=== PATIENT | male | born 1930 | race Caucasian/White ===

== ENCOUNTER 2017-04-28 16:19 | Emergency (ER) | payer OTHER ==
[2017-04-28 17:17] VITALS: BP 155/65; PULSE 72; TEMP 98.5; BMI 25.6
--- NOTE | 2017-04-28 17:52 | PDOC ---
History of Present Illness <Cameron Dias - Last Filed: 04/28/17 17:50> - General History Source: Patient, Family Exam Limitations: Other - History of Present Illness Initial Comments: 04/28/17 20:19 The patient is a 86 year old male, with a significant past medical history chronic constipation, hypertension, anxiety, who presents to the emergency department s/p mechanical fall yesterday. Patient reports he was putting in an enema for constipation, when he suddenly he lost his balance and hit his head on a knob. Patient denies any loss of consciousness, changes in vision, headache , lightheadedness, dizziness, numbness or tingling, neck or back pain. He denies any chest pain, shortness of breath, diaphoresis, palpitations, or lower extremity edema prior to falling. He denies any focal weakness, fever, chills, cough, headache, or dizziness. He denies any abdominal pain, nausea, vomiting, diarrhea. He denies any recent travel or sick contacts. He denies any other falls. Patient takes an Aspirin daily. Patient endorses increasing insomnia and decrease in cognition and difficulty finding words over the past 2 months, s/p addition of new psychiatric and hypertension medications. Patient also endorses orthopnea and dyspnea on exertion. Allergies: NKDA Past Surgical History: Hip replacement Social History: Non smoker. No ETOH or recreational drug use. PCP: Dr. Quach <Dipak Fowler - Last Filed: 04/28/17 20:19> <Hodan Marino - Last Filed: 04/29/17 02:29> - General Chief Complaint: Injury Stated Complaint: FALL MORNING Time Seen by Provider: 04/28/17 16:22 Past History - Past Medical History COPD: No - Suicide/Smoking/Psychosocial Hx Smoking History: Never smoked Have you smoked in the past 12 months: No Information on smoking cessation initiated: No Hx Alcohol Use: No Drug/Substance Use Hx: No Substance Use Type: None <Cameron Dias - Last Filed: 04/28/17 17:50> <Dipak Fowler - Last Filed: 04/28/17 20:19> <Hodan Marino - Last Filed: 04/29/17 02:29> - Past Medical History Allergies/Adverse Reactions: Allergies Allergy/AdvReac Type Severity Reaction Status Date / Time No Known Allergies Allergy Verified 04/28/17 17:07 Home Medications: Ambulatory Orders Amlodipine Besylate 5 mg PO DAILY 04/28/17 Aspirin [ASA -] 81 mg PO DAILY 04/28/17 Doxazosin Mesylate [Cardura -] 4 mg PO DAILY 04/28/17 Finasteride [Proscar] 5 mg PO DAILY 04/28/17 Mirtazapine 7.5 mg PO HS 04/28/17 Sertraline HCl [Zoloft] 100 mg PO DAILY 04/28/17 Trazodone HCl 50 mg PO HS 04/28/17 Valsartan 160 mg PO DAILY 04/28/17 Review of Systems - Review of Systems Able to Perform ROS?: Yes Comments:: 04/28/17 20:20 CONSTITUTIONAL: Absent: fever, no chills, no fatigue EYES: Absent: visual changes ENT: Absent: ear pain, no sore throat CARDIOVASCULAR: Absent: chest pain, no palpitations RESPIRATORY: Present: Orthopnea Absent: cough GI: Present: constipation Absent: abdominal pain, no nausea, no vomiting, no diarrhea GENITOURINARY: Absent: dysuria, no frequency, no hematuria MUSKULOSKELETAL: Absent: back pain, no arthralgia, no myalgia SKIN: Absent: rash NEURO: Present: Increasing insomnia, decrease in cognition, difficulty word finding Absent: headache <Fowler,Giomilsy - Last Filed: 04/28/17 20:19> *Physical Exam - Vital Signs Last Vital Signs Temp Pulse Resp BP Pulse Ox 98.5 F 72 20 155/65 98 04/28/17 16:20 04/28/17 16:20 04/28/17 16:20 04/28/17 16:20 04/28/17 16:20 <ArunCameron - Last Filed: 04/28/17 17:50> - Vital Signs Last Vital Signs Temp Pulse Resp BP Pulse Ox 98.5 F 72 20 155/65 98 04/28/17 16:20 04/28/17 16:20 04/28/17 16:20 04/28/17 16:20 04/28/17 16:20 - Physical Exam Comments: 04/28/17 20:20 GENERAL: The patient is awake, alert, and fully oriented, in no acute distress. HEAD: 1x1 cm nonbleeding shallow abrasion at the vertex. No other lesions noted. No other signs of trauma. EYES: Pupils 2 mm, equal, round and reactive to light, extraocular movements intact, sclera anicteric, conjunctiva clear with no pallor. ENT: Ears normal, nares patent, oropharynx clear without exudates. Moist mucous membranes. NECK: Normal range of motion, supple without lymphadenopathy, JVD, or masses. Non tender. LUNGS: Breath sounds equal, clear to auscultation bilaterally. No wheeze/ crackles. HEART: 2/6 systolic ejection murmur. Regular rate. ABDOMEN: Soft/nontender/nondistended. BS wnl. No guarding or rebound. No palpable masses. No hepatosplenomegaly. EXTREMITIES: Normal range of motion, no edema. No clubbing or cyanosis. No cords, erythema, or tenderness. NEUROLOGICAL: Difficulty with word recall. No other focal neurological deficits. Cranial nerves II through XII grossly intact. Normal gait. PSYCH: Normal mood, normal affect. SKIN: Warm, Dry, normal turgor, no rashes or lesions noted. <Dipak Fowler - Last Filed: 04/28/17 20:19> - Vital Signs Last Vital Signs Temp Pulse Resp BP Pulse Ox 98.5 F 72 20 155/65 98 04/28/17 16:20 04/28/17 16:20 04/28/17 16:20 04/28/17 16:20 04/28/17 16:20 <Hodan Marino - Last Filed: 04/29/17 02:29> ED Treatment Course - RADIOLOGY Radiograph Interpretation: 04/28/17 20:19 EXAM: Head CT INTERPRETED BY: Dr. Shelton REVIEWED BY: Dr. Marino IMPRESSION: 1. No evidence of acute intracranial hemorrhage or acute calvarial fracture. No mass effect, midline shift or hydrocephalus. 2. 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 I attest that this documented accurately reflects all work, treatment, procedures and medical decision making performed by me. <Hodan Marino - Last Filed: 04/29/17 02:29> Medical Decision Making - Medical Decision Making 04/28/17 17:50 86y M hx of presents s/p fall. pt was giving himself a enema when he fell over and struck his head on a door knob without any syncope, headache, n/v, <Cameron Dias - Last Filed: 04/28/17 17:50> - Medical Decision Making As noted above, this 86-year-old man presents with history of losing his balance at home yesterday and falling, striking top of his head against a door in his home where he lives alone. He presents to the ER with his family with no new complaints (specifically, denies headache, nausea/vomiting, lightheadedness or new neurologic symptoms). He has been having word recall and cognition problems for several weeks but these are not worse in the last 24 hours. He also has issues with chronic constipation but this is not worsened acutely either. Both chronic problems are complicated by the patient being on multiple medications. Exam as noted above. Because of his advanced age and being on aspirin, noncontrast head CT was performed to evaluate for acute intracranial pathology. Noncontrast head CT negative for fracture/bleed/masses or other acute abnormalities. Small nonbleeding abrasion at the vertex was cleansed using sterile saline and bacitracin/Band-Aid applied. Further follow-up was discussed with the patient and his family. Patient already has appointment scheduled with ink maker and psychiatrists in the coming week. He has not been evaluated by neurologist since the onset of his word recall/cognition problems. He was given referral information for Dr. Neely with whom he should follow-up within the next week. Also, patient had questions regarding his chronic constipation. Although he has been prescribed MiraLAX, it is unclear if he takes it daily. The patient has been advised to take it on a daily basis and to drink plenty of water. <Hodan Marino - Last Filed: 04/29/17 02:29> *DC/Admit/Observation/Transfer <Cameron Dias - Last Filed: 04/28/17 17:50> - Attestations Scribe Attestion: 04/28/17 20:19 Documentation prepared by Dipak Fowler, acting as medical office scheduler for Hodan Marino MD. <Dipak Fowler - Last Filed: 04/28/17 20:19> <Hodan Marino - Last Filed: 04/29/17 02:29> Diagnosis at time of Disposition: Scalp abrasion Qualifiers: Encounter type: initial encounter Qualified Code(s): S00.01XA - Abrasion of scalp, initial encounter Constipation Qualifiers: Constipation type: unspecified constipation type Qualified Code(s): K59.00 - Constipation, unspecified - Discharge Dispostion Disposition: HOME Condition at time of disposition: Stable - Referrals Referrals: Roddy Neely MD [Staff Physician] - Call tomorrow - Patient Instructions Printed Discharge Instructions: Constipation Additional Instructions: tylenol as needed for pain continue drinking plenty of fluids continue Miralax daily consider citrate of magnesia for persistent constipation followup with neurologist(Dr Neely) within one week followup with student union consultant/cardilogist/psychiatrist as scheduled return to ER if you have headache/vomiting/severe abdominal pain
--- NOTE | 2017-04-30 20:47 | EKG ---
Test Reason : Blood Pressure : / mmHG Vent. Rate : 088 BPM Atrial Rate : 088 BPM P-R Int : 130 ms QRS Dur : 084 ms QT Int : 344 ms P-R-T Axes : 074 044 033 degrees QTc Int : 416 ms NORMAL SINUS RHYTHM POSSIBLE LEFT ATRIAL ENLARGEMENT BORDERLINE ECG NO PREVIOUS ECGS AVAILABLE Confirmed by DANIELLE DICKERSON, ELIANA ([id number]) on 04/30/2017 8:46:56 PM Referred By: MD TAYLOR Confirmed By:ELIANA SANTOS MD
== END 2017-04-28 20:20 | disposition home or self-care (01) ==
LOC: FER 16:19 → EDBD 16:19 → FER 20:20
DX: S00.01XA Abrasion of scalp, initial encounter (principal); K59.00 Constipation, unspecified; W22.01XA Walked into wall, initial encounter; Y93.89 Activity, other specified; Y92.009 Unspecified place in unspecified non-institutional (private) residence as the place of occurrence of the external cause
CPT/HCPCS: 70450-TC; 93005; 99282-25

== ENCOUNTER 2019-04-29 17:06 | Inpatient (IN) | payer OTHER ==
--- NOTE | 2019-04-29 17:26 | PDOC ---
History of Present Illness - General Chief Complaint: Pain, Acute Stated Complaint: FALL Time Seen by Provider: 04/29/19 17:25 - History of Present Illness Initial Comments: Alphonse Mackey is a 86 year old male, with a significant past medical history hypertension, anxiety, who presents to the emergency department s/p fall on Monday afternoon. Reports that he was walking around a track when he fell. States that he feel due to feeling unsteady from lack of sleep over the past week. Reports bruising and pain in the right periorbital region. No headache. Fall was unwitnessed and EMS was called. Denies dizziness/heart palpitations. Also reports right hand swelling and bruising. Denies recent illness. Denies chest pain/shortness of breath. Denies abdominal pain. Denies diarrhea/dysuria. Allergies: NKDA Past Surgical History: Hip replacement Social History: Non smoker. No ETOH or recreational drug use. PCP: Dr. Quach Past History - Past Medical History Allergies/Adverse Reactions: Allergies Allergy/AdvReac Type Severity Reaction Status Date / Time No Known Allergies Allergy Verified 04/28/17 17:07 Home Medications: Ambulatory Orders Amlodipine Besylate 5 mg PO DAILY 04/28/17 Doxazosin Mesylate [Cardura -] 4 mg PO DAILY 04/28/17 Finasteride [Proscar] 5 mg PO DAILY 04/28/17 Aspirin Coated [Ecotrin -] 81 mg PO DAILY 04/29/19 Losartan Potassium [Cozaar] 100 mg PO DAILY 04/29/19 Quetiapine Fumarate [Seroquel -] 50 mg PO HS 04/29/19 COPD: No HTN: Yes - Psycho Social/Smoking Cessation Hx Smoking History: Never smoked Have you smoked in the past 12 months: No Hx Alcohol Use: No Drug/Substance Use Hx: No Substance Use Type: None Review of Systems - Review of Systems Comments:: GENERAL/CONSTITUTIONAL: No fever or chills. No weakness._ HEAD, EYES, EARS, NOSE AND THROAT: No change in vision. No change in hearing. No sore throat. Reports right periorbital pain. CARDIOVASCULAR: No chest pain or shortness of breath_ RESPIRATORY: Denies cough, hemoptysis_ GASTROINTESTINAL: No nausea, vomiting, diarrhea or constipation._ GENITOURINARY: No dysuria, frequency, or change in urination._ MUSCULOSKELETAL: Reports right hand pain and swelling. No neck or back pain._ SKIN: No rash_ NEUROLOGIC: Reports headache. No vertigo, loss of consciousness, or change in strength/sensation._ ENDOCRINE: No increased thirst. No abnormal weight change_ HEMATOLOGIC/LYMPHATIC: No anemia, easy bleeding, or history of blood clots._ ALLERGIC/IMMUNOLOGIC: No hives or skin allergy._ *Physical Exam - Vital Signs Last Vital Signs Temp Pulse Resp BP Pulse Ox 97.9 F 70 18 131/62 99 04/29/19 17:06 04/29/19 17:06 04/29/19 17:06 04/29/19 17:06 04/29/19 17:06 - Physical Exam GENERAL: Awake, alert, and oriented to person/place/time, in no acute distress_ HEAD: Right periorbital bruising. EYES: PERRLA, EOMI, sclera anicteric, conjunctiva clear. ENT: Hearing grossly normal, nares patent, oropharynx clear without exudates. No uvular deviation. Moist mucosa_ NECK: Normal ROM, supple, no lymphadenopathy, JVD, or masses. no c-spine ttp. LUNGS: No distress, speaks in full sentences, clear to auscultation bilaterally _ HEART: Regular rate and rhythm, normal S1 and S2, no murmurs appreciated, peripheral pulses normal and equal bilaterally._ ABDOMEN: Soft, nontender, normoactive bowel sounds. No guarding, no rebound. No masses_ EXTREMITIES: Right hand swelling and mild TTP, with full ROM. No BLE edema. No clubbing or cyanosis_ NEUROLOGICAL: CN II-XII tested and intact. Sensation intact to sharp/dull differentiation in all extremities. Motor: Normal tone and bulk. No abnormal movements appreciated. No pronator drift. Strength tested and 5/5 in bilateral wrist flexion/extension, elbow flexion/extension, shoulder abduction, straight leg raise, knee flexion/extension, ankle dorsiflexion/plantarflexion. Patient ambulates with a steady gait. Coordination: Finger to nose and heel to [place]wood testing intact bilaterally. SKIN: Warm, Dry, normal turgor, no rashes or lesions noted_ Procedures - Splinting Splint Location: Right: Wrist (right 4th/5th metatarsal non displaced fx) Pre-Proc Neuro Vasc Exam: normal Hand-Made Type: orthoglass Splint Type: Yes: Ulnar Post-Proc Neuro Vasc Exam: normal Simon Bandage: yes, 2", 4", 6" Sling: No Complications: No Post splint xray: No Good repositioning: Yes ED Treatment Course - LABORATORY CBC & Chemistry Diagram: 04/30/19 06:45 04/30/19 06:45 Medical Decision Making - Medical Decision Making 04/29/19 17:41 88M presenting s/p fall on Monday afternoon. -cbc, cmp -ekg, trop, cxr -ua, ucx -ct head/orbits -XR right hand and wrist 04/29/19 18:18 CT head negative for acute intracranial hemorrhage or pathology. 04/29/19 18:32 Labs reviewed. Laboratory Last Values WBC 9.2 K/mm3 (4.0-10.8) 04/29/19 17:40 RBC 3.21 M/mm3 (4.00-5.60) L 04/29/19 17:40 Hgb 10.7 GM/dl (11.7-16.9) L 04/29/19 17:40 Hct 32.2 % (35.4-49) L 04/29/19 17:40 MCV 100.6 fl (80-96) H 04/29/19 17:40 MCH 33.5 pg (25.7-33.7) 04/29/19 17:40 MCHC 33.3 g/dl (32.0-35.9) 04/29/19 17:40 RDW 12.3 % (11.9-15.9) 04/29/19 17:40 Plt Count 231 K/MM3 (134-434) 04/29/19 17:40 MPV 7.8 fl (7.5-11.1) 04/29/19 17:40 Absolute Neuts (auto) 7.2 K/mm3 04/29/19 17:40 Neutrophils % 78.3 % (42.8-82.8) 04/29/19 17:40 Lymphocytes % 10.8 % (8-40) 04/29/19 17:40 Monocytes % 9.7 % (3.8-10.2) 04/29/19 17:40 Eosinophils % 1.0 % (0-4.5) 04/29/19 17:40 Basophils % 0.2 % (0-2.0) 04/29/19 17:40 Sodium 128 mmol/L (136-145) L 04/29/19 17:40 Potassium 4.5 mmol/L (3.5-5.1) 04/29/19 17:40 Chloride 96 mmol/L (98-107) L 04/29/19 17:40 Carbon Dioxide 23 mmol/L (21-32) 04/29/19 17:40 Anion Gap 9 MMOL/L (8-16) 04/29/19 17:40 BUN 18.0 mg/dl (7-18) 04/29/19 17:40 Creatinine 0.8 mg/dl (0.55-1.3) 04/29/19 17:40 Est GFR (CKD-EPI)AfAm 93.75 04/29/19 17:40 Est GFR (CKD-EPI)NonAf 80.89 04/29/19 17:40 Random Glucose 120 mg/dl (74-106) H 04/29/19 17:40 Calcium 8.9 mg/dl (8.5-10) 04/29/19 17:40 Total Bilirubin 0.9 mg/dl (0.2-1) 04/29/19 17:40 AST 21 U/L (15-37) 04/29/19 17:40 ALT 16 U/L (13-61) 04/29/19 17:40 Alkaline Phosphatase 49 U/L (45-117) 04/29/19 17:40 Creatine Kinase 236 U/L (26-308) 04/29/19 17:40 Troponin I < 0.03 ng/ml (0.00-0.05) 04/29/19 17:40 Total Protein 5.7 g/dl (6.4-8.2) L 04/29/19 17:40 Albumin 3.8 g/dl (3.4-5.0) 04/29/19 17:40 Urine Color Yellow 04/29/19 18:00 Urine Appearance Clear 04/29/19 18:00 Urine pH 7.5 (4.5-8) 04/29/19 18:00 Urine Protein Negative (NEGATIVE) 04/29/19 18:00 Urine Glucose (UA) Negative (NEGATIVE) 04/29/19 18:00 Urine Ketones Negative (NEGATIVE) 04/29/19 18:00 Urine Blood Negative (NEGATIVE) 04/29/19 18:00 Urine Nitrite Negative (NEGATIVE) 04/29/19 18:00 Urine Bilirubin Negative (NEGATIVE) 04/29/19 18:00 Urine Urobilinogen 0.2 (0.2-1.0) 04/29/19 18:00 Ur Leukocyte Esterase Negative (NEGATIVE) 04/29/19 18:00 04/29/19 18:34 Pt hyponatremic. Will start NS fluids and urine Na/Cl/osm. 04/29/19 18:47 EKG shows sinus rhythm with premature supraventricular complexes, 69 bpm, no ST elevation, QTc 407. 04/29/19 18:56 CXR negative. 04/29/19 19:08 CT head negative for acute intracranial pathology or hemorrhage. CT orbit negative for acute fracture. 04/29/19 19:57 D/w Dr. Alberts who accepts the pt for admission. XR right hand shows nondisplaced fx of 5th metatarsal and possible fx of 4th metatarsal. Ulnar gutter splint applied. Discharge - Discharge Information Problems reviewed: Yes Clinical Impression/Diagnosis: Hyponatremia Fracture of metacarpal of right hand, closed Qualifiers: Encounter type: initial encounter Fracture alignment: nondisplaced Condition: Stable - Admission Yes - Follow up/Referral - Patient Discharge Instructions - Post Discharge Activity
--- NOTE | 2019-04-29 17:30 | PDOC ---
Attending Attestation - Resident Resident Name: Juan Luis Rivas - ED Attending Attestation I have performed the following: I have examined & evaluated the patient, The case was reviewed & discussed with the resident, I agree w/resident's findings & plan, Exceptions are as noted - HPI HPI: 04/29/19 17:30 The patient is a 86 year old male, with a significant past medical history chronic constipation, hypertension, anxiety, who presents to the emergency department s/p mechanical fall yesterday.
[2019-04-29 18:04] LABS: BASO % 0.2 % (0-2.0); HEMATOCRIT 32.2 % (35.4-49); HEMOGLOBIN 10.7 GM/dl (11.7-16.9); LYMPH % 10.8 % (8-40); MCH 33.5 pg (25.7-33.7); MCHC 33.3 g/dl (32.0-35.9); MEAN CELL VOLUME 100.6 fl (80-96); MEAN PLT VOLUME 7.8 fl (7.5-11.1); MONO % 9.7 % (3.8-10.2); NEUT % 78.3 % (42.8-82.8); PLATELET COUNT 231 K/MM3 (134-434); RBC 3.21 M/mm3 (4.00-5.60); RDW 12.3 % (11.9-15.9); WHITE BLOOD COUNT 9.2 K/mm3 (4.0-10.8)
[2019-04-29 18:14] LABS: ALBUMIN 3.8 g/dl (3.4-5.0); BILIRUBIN,TOTAL 0.9 mg/dl (0.2-1); CALCIUM 8.9 mg/dl (8.5-10); CREATININE 0.8 mg/dl (0.55-1.3); POTASSIUM 4.5 mmol/L (3.5-5.1); TOT PROT 5.7 g/dl (6.4-8.2)
[2019-04-29] MEDS ORDERED: SODIUM CHLORIDE 1,000 ML IV SCH (18:45)
--- NOTE | 2019-04-29 19:25 | PDOC ---
*Physical Exam - Vital Signs Last Vital Signs Temp Pulse Resp BP Pulse Ox 97.9 F 70 18 131/62 99 04/29/19 17:06 04/29/19 17:06 04/29/19 17:06 04/29/19 17:06 04/29/19 17:06 ED Treatment Course - LABORATORY CBC & Chemistry Diagram: 04/29/19 17:40 04/29/19 17:40 - ADDITIONAL ORDERS Additional order review: Laboratory Results 04/29/19 04/29/19 04/29/19 18:11 18:00 17:40 Sodium Potassium Chloride Carbon Dioxide Anion Gap BUN Creatinine Est GFR (CKD-EPI)AfAm Est GFR (CKD-EPI)NonAf Random Glucose Calcium Total Bilirubin AST ALT Alkaline Phosphatase Creatine Kinase Creatine Kinase Index CK-MB (CK-2) Troponin I < 0.03 Total Protein Albumin Urine Color Yellow Urine Appearance Clear Urine pH 7.5 Urine Protein Negative Urine Glucose (UA) Negative Urine Ketones Negative Urine Blood Negative Urine Nitrite Negative Urine Bilirubin Negative Urine Urobilinogen 0.2 Ur Leukocyte Esterase Negative Ur Random Sodium 14 L Ur Random Chloride 34 L 04/29/19 17:40 Sodium 128 L Potassium 4.5 Chloride 96 L Carbon Dioxide 23 Anion Gap 9 BUN 18.0 Creatinine 0.8 Est GFR (CKD-EPI)AfAm 93.75 Est GFR (CKD-EPI)NonAf 80.89 Random Glucose 120 H Calcium 8.9 Total Bilirubin 0.9 AST 21 ALT 16 Alkaline Phosphatase 49 Creatine Kinase 236 Creatine Kinase Index 3.1 CK-MB (CK-2) 7.5 H Troponin I Total Protein 5.7 L Albumin 3.8 Urine Color Urine Appearance Urine pH Urine Protein Urine Glucose (UA) Urine Ketones Urine Blood Urine Nitrite Urine Bilirubin Urine Urobilinogen Ur Leukocyte Esterase Ur Random Sodium Ur Random Chloride 04/29/19 17:40 RBC 3.21 L MCV 100.6 H MCHC 33.3 RDW 12.3 MPV 7.8 Neutrophils % 78.3 Lymphocytes % 10.8 Monocytes % 9.7 Eosinophils % 1.0 Basophils % 0.2 Medical Decision Making - Medical Decision Making 04/29/19 19:24\ pt signed out from Dr Cardenas at 7pm pending admission in summary: The patient is a 86 year old male, with a 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 Vital Signs Temp Pulse Resp BP Pulse Ox 97.9 F 70 18 131/62 99 04/29/19 17:06 04/29/19 17:06 04/29/19 17:06 04/29/19 17:06 04/29/19 17:06 VS reviewed wnl labs and lytes with hyponatremia, chronic anemia. UA neg for infection. lytes sent. fall and weakness/dizziness can be from hyponatremia head CT neg for acute pathology/bleed or mass/cva. orbits neg for fx. xray of hand with rt 4-5th nondisplaced metacarpal fx at the base, ulnar gutter placed with the resident, immobilization see separate procedure note. KIYA admission to hospitalist service, Dr Alberts 04/29/19 19:26 04/29/19 19:54 04/29/19 19:55 04/29/19 19:56 Discharge - Discharge Information Problems reviewed: Yes Clinical Impression/Diagnosis: Hyponatremia Fracture of metacarpal of right hand, closed Qualifiers: Encounter type: initial encounter Fracture alignment: nondisplaced Condition: Stable - Admission Yes - Follow up/Referral - Patient Discharge Instructions - Post Discharge Activity
[2019-04-29 22:17] VITALS: BMI 26.7
[2019-04-29] MEDS ORDERED: ACETAMINOPHEN 325 MG TABLET (FP) PO PRN (22:56)
--- NOTE | 2019-04-30 06:03 | HP ---
CHIEF COMPLAINT: Fall PCP: Dr. Quach HISTORY OF PRESENT ILLNESS: ER course was notable for: (1) (2) (3) Recent Travel: PAST MEDICAL HISTORY: Hypertension Anxiety Chronic constipation PAST SURGICAL HISTORY: Hip replacement Social History: Smoking: no Alcohol: no Drugs: no Allergies No Known Allergies Allergy (Verified 04/28/17 17:07) HOME MEDICATIONS: Home Medications Medication Instructions Recorded Amlodipine Besylate 5 mg PO DAILY 04/28/17 Doxazosin Mesylate [Cardura -] 4 mg PO DAILY 04/28/17 Finasteride [Proscar] 5 mg PO DAILY 04/28/17 Aspirin Coated [Ecotrin -] 81 mg PO DAILY 04/29/19 Losartan Potassium [Cozaar] 100 mg PO DAILY 04/29/19 Quetiapine Fumarate [Seroquel -] 50 mg PO HS 04/29/19 REVIEW OF SYSTEMS CONSTITUTIONAL: Absent: fever, chills, diaphoresis, generalized weakness, malaise, loss of appetite, weight change HEENT: Absent: rhinorrhea, nasal congestion, throat pain, throat swelling, difficulty swallowing, mouth swelling, ear pain, eye pain, visual changes CARDIOVASCULAR: Absent: chest pain, syncope, palpitations, irregular heart rate, lightheadedness, peripheral edema RESPIRATORY: Absent: cough, shortness of breath, dyspnea with exertion, orthopnea, wheezing, stridor, hemoptysis GASTROINTESTINAL: Absent: abdominal pain, abdominal distension, nausea, vomiting, diarrhea, constipation, melena, hematochezia GENITOURINARY: Absent: dysuria, frequency, urgency, hesitancy, hematuria, flank pain, genital pain MUSCULOSKELETAL: Absent: myalgia, arthralgia, joint swelling, back pain, neck pain SKIN: Absent: rash, itching, pallor HEMATOLOGIC/IMMUNOLOGIC: Absent: easy bleeding, easy bruising, lymphadenopathy, frequent infections ENDOCRINE: Absent: unexplained weight gain, unexplained weight loss, heat intolerance, cold intolerance NEUROLOGIC: Absent: headache, focal weakness or paresthesias, dizziness, unsteady gait, seizure, mental status changes, bladder or bowel incontinence PSYCHIATRIC: Absent: anxiety, depression, suicidal or homicidal ideation, hallucinations. PHYSICAL EXAMINATION Vital Signs - 24 hr 04/29/19 04/29/19 04/29/19 17:06 20:20 20:43 Temperature 97.9 F 98.4 F Pulse Rate 70 67 Pulse Rate [ 69 Left] Respiratory 18 18 18 Rate Blood Pressure 131/62 127/64 Blood Pressure 126/71 [Right] O2 Sat by Pulse 99 95 97 Oximetry (%) 04/29/19 04/30/19 21:00 02:00 Temperature 98.0 F Pulse Rate 74 Pulse Rate [ Left] Respiratory 18 18 Rate Blood Pressure 138/56 L Blood Pressure [Right] O2 Sat by Pulse 97 98 Oximetry (%) GENERAL: Awake, alert, and fully oriented, in no acute distress. HEAD: Normal with no signs of trauma. EYES: Pupils equal, round and reactive to light, extraocular movements intact, sclera anicteric, conjunctiva clear. No lid lag. EARS, NOSE, THROAT: Ears normal, nares patent, oropharynx clear without exudates. Moist mucous membranes. NECK: Normal range of motion, supple without lymphadenopathy, JVD, or masses. LUNGS: Breath sounds equal, clear to auscultation bilaterally. No wheezes, and no crackles. No accessory muscle use. HEART: Regular rate and rhythm, normal S1 and S2 without murmur, rub or gallop. ABDOMEN: Soft, nontender, not distended, normoactive bowel sounds, no guarding, no rebound, no masses. No hepatomegaly or splenomegaly. MUSCULOSKELETAL: Normal range of motion at all joints. No bony deformities or tenderness. No CVA tenderness. UPPER EXTREMITIES: 2+ pulses, warm, well-perfused. No cyanosis. No clubbing. No peripheral edema. LOWER EXTREMITIES: 2+ pulses, warm, well-perfused. No calf tenderness. No peripheral edema. NEUROLOGICAL: Cranial nerves II-XII intact. Normal speech. Normal gait. PSYCHIATRIC: Cooperative. Good eye contact. Appropriate mood and affect. SKIN: Warm, dry, normal turgor, no rashes or lesions noted, normal capillary refill. Laboratory Results - last 24 hr 04/29/19 04/29/19 04/29/19 17:40 17:40 17:40 WBC 9.2 RBC 3.21 L Hgb 10.7 L Hct 32.2 L MCV 100.6 H MCH 33.5 MCHC 33.3 RDW 12.3 Plt Count 231 MPV 7.8 Absolute Neuts (auto) 7.2 Neutrophils % 78.3 Lymphocytes % 10.8 Monocytes % 9.7 Eosinophils % 1.0 Basophils % 0.2 Sodium 128 L Potassium 4.5 Chloride 96 L Carbon Dioxide 23 Anion Gap 9 BUN 18.0 Creatinine 0.8 Est GFR (CKD-EPI)AfAm 93.75 Est GFR (CKD-EPI)NonAf 80.89 Random Glucose 120 H Calcium 8.9 Total Bilirubin 0.9 AST 21 ALT 16 Alkaline Phosphatase 49 Creatine Kinase 236 Creatine Kinase Index 3.1 CK-MB (CK-2) 7.5 H Troponin I < 0.03 Total Protein 5.7 L Albumin 3.8 Urine Color Urine Appearance Urine pH Urine Protein Urine Glucose (UA) Urine Ketones Urine Blood Urine Nitrite Urine Bilirubin Urine Urobilinogen Ur Leukocyte Esterase Urine Osmolality Ur Random Sodium Ur Random Chloride 04/29/19 04/29/19 18:00 18:11 WBC RBC Hgb Hct MCV MCH MCHC RDW Plt Count MPV Absolute Neuts (auto) Neutrophils % Lymphocytes % Monocytes % Eosinophils % Basophils % Sodium Potassium Chloride Carbon Dioxide Anion Gap BUN Creatinine Est GFR (CKD-EPI)AfAm Est GFR (CKD-EPI)NonAf Random Glucose Calcium Total Bilirubin AST ALT Alkaline Phosphatase Creatine Kinase Creatine Kinase Index CK-MB (CK-2) Troponin I Total Protein Albumin Urine Color Yellow Urine Appearance Clear Urine pH 7.5 Urine Protein Negative Urine Glucose (UA) Negative Urine Ketones Negative Urine Blood Negative Urine Nitrite Negative Urine Bilirubin Negative Urine Urobilinogen 0.2 Ur Leukocyte Esterase Negative Urine Osmolality 440 Ur Random Sodium 14 L Ur Random Chloride 34 L ASSESSMENT/PLAN hyponatremia --low urine Na, urine creatinine pending; likely prerenal --NS@83mL/hr --128 on admission, now 129, repeat in am orthostatic hypotension --stop doxazosin, proscar --decrease seroquel to 25mg qhs Expressive dysphagia --cognitive and speech problems noted during 2018 ED visit; was thereafter seen by a neurologist at [facility] (Dr. Pugh), and [place] [facility] [place] not seen either probider in 2 years, seroquel prescribed by PCP [facility]; no other psych meds for 2 years.
[2019-04-30] MEDS: HEPARIN NA (PORCINE) 5,000 UNITS/ML 1ML VIAL SQ SCH ×2 (06:07→14:38)
[2019-04-30 07:53] LABS: HEMATOCRIT 32.6 % (35.4-49); HEMOGLOBIN 10.6 GM/dl (11.7-16.9); MCH 33.2 pg (25.7-33.7); MCHC 32.6 g/dl (32.0-35.9); MEAN CELL VOLUME 101.7 fl (80-96); MEAN PLT VOLUME 7.9 fl (7.5-11.1); PLATELET COUNT 222 K/MM3 (134-434); RDW 12.5 % (11.9-15.9); WHITE BLOOD COUNT 6.7 K/mm3 (4.0-10.8)
[2019-04-30 07:59] LABS: CALCIUM 8.4 mg/dl (8.5-10); CREATININE 0.6 mg/dl (0.55-1.3); POTASSIUM 3.8 mmol/L (3.5-5.1)
[2019-04-30] MEDS ORDERED: LOSARTAN POTASSIUM 50 MG TABLET (FP) PO SCH (10:00)
[2019-04-30] MEDS ORDERED: PATIENT'S OWN MEDICATION (NON-FORMULARY) (Losartan Potassium [Cozaar] 100 MG) PO SCH (10:00)
[2019-04-30] MEDS ORDERED: ASPIRIN COATED 81 MG TABLET.EC PO SCH (10:00)
[2019-04-30] MEDS ORDERED: DOXAZOSIN MESYLATE 4 MG TABLET PO SCH (10:00)
[2019-04-30] MEDS ORDERED: amLODIPine BESYLATE 5 MG TABLET (FP) PO SCH (10:00)
[2019-04-30] MEDS ORDERED: FINASTERIDE 5 MG TABLET (FP) PO SCH (10:00)
[2019-04-30] MEDS ORDERED: SODIUM CHLORIDE 500 ML IV STA (10:18)
[2019-04-30] MEDS ORDERED: SODIUM CHLORIDE 1,000 ML IV SCH (10:30)
--- NOTE | 2019-04-30 11:02 | EKG ---
Test Reason : Blood Pressure : / mmHG Vent. Rate : 069 BPM Atrial Rate : 069 BPM P-R Int : 170 ms QRS Dur : 084 ms QT Int : 380 ms P-R-T Axes : 073 030 046 degrees QTc Int : 407 ms SINUS RHYTHM WITH PREMATURE SUPRAVENTRICULAR COMPLEXES POSSIBLE LEFT ATRIAL ENLARGEMENT BORDERLINE ECG WHEN COMPARED WITH ECG OF 28-APR-2017 18:09, PREMATURE SUPRAVENTRICULAR COMPLEXES ARE NOW PRESENT Confirmed by Juan Luis Oates MD ([id number]) on 04/30/2019 11:02:25 AM Referred By: Confirmed By:Juan Luis Oates MD
[2019-04-30 13:44] VITALS: PULSE 94; TEMP 98.4
[2019-04-30 13:45] VITALS: BP 135/50
[2019-04-30 15:46] LABS: CALCIUM 8.2 mg/dl (8.5-10); CREATININE 0.8 mg/dl (0.55-1.3); POTASSIUM 4.1 mmol/L (3.5-5.1)
--- NOTE | 2019-04-30 17:07 | DS ---
Physical Exam: SUBJECTIVE: Patient seen and examined OBJECTIVE: Vital Signs Period Temp Pulse Resp BP Sys/Pedro Pulse Ox Last 24 Hr 98.0 F-98.4 F 67-98 16-20 118-138/47-71 95-98 PHYSICAL EXAM GENERAL: The patient is awake, alert, and fully oriented, in no acute distress. HEAD: Normal with no signs of trauma. EYES: PERRL, extraocular movements intact, sclera anicteric, conjunctiva clear. ENT: Ears normal, nares patent, oropharynx clear without exudates, moist mucous membranes. NECK: Trachea midline, full range of motion, supple. LUNGS: Breath sounds equal, clear to auscultation bilaterally, no wheezes, no crackles, no accessory muscle use. HEART: Regular rate and rhythm, S1, S2 without murmur, rub or gallop. ABDOMEN: Soft, nontender, nondistended, normoactive bowel sounds, no guarding, no rebound, no hepatosplenomegaly, no masses. EXTREMITIES: 2+ pulses, warm, well-perfused, no edema. NEUROLOGICAL: Cranial nerves II through XII grossly intact. Normal speech, gait not observed. PSYCH: Normal mood, normal affect. SKIN: Warm, dry, normal turgor, no rashes or lesions noted. LABS Laboratory Results - last 24 hr 04/29/19 04/29/19 04/29/19 17:40 17:40 17:40 WBC 9.2 RBC 3.21 L Hgb 10.7 L Hct 32.2 L MCV 100.6 H MCH 33.5 MCHC 33.3 RDW 12.3 Plt Count 231 MPV 7.8 Absolute Neuts (auto) 7.2 Neutrophils % 78.3 Lymphocytes % 10.8 Monocytes % 9.7 Eosinophils % 1.0 Basophils % 0.2 Sodium 128 L Potassium 4.5 Chloride 96 L Carbon Dioxide 23 Anion Gap 9 BUN 18.0 Creatinine 0.8 Est GFR (CKD-EPI)AfAm 93.75 Est GFR (CKD-EPI)NonAf 80.89 Random Glucose 120 H Calcium 8.9 Magnesium Total Bilirubin 0.9 AST 21 ALT 16 Alkaline Phosphatase 49 Creatine Kinase 236 Creatine Kinase Index 3.1 CK-MB (CK-2) 7.5 H Troponin I < 0.03 Total Protein 5.7 L Albumin 3.8 Urine Color Urine Appearance Urine pH Urine Protein Urine Glucose (UA) Urine Ketones Urine Blood Urine Nitrite Urine Bilirubin Urine Urobilinogen Ur Leukocyte Esterase Urine Osmolality Ur Random Sodium Ur Random Chloride 04/29/19 04/29/19 04/30/19 18:00 18:11 06:45 WBC 6.7 RBC 3.20 L Hgb 10.6 L Hct 32.6 L MCV 101.7 H MCH 33.2 MCHC 32.6 RDW 12.5 Plt Count 222 MPV 7.9 Absolute Neuts (auto) Neutrophils % Lymphocytes % Monocytes % Eosinophils % Basophils % Sodium Potassium Chloride Carbon Dioxide Anion Gap BUN Creatinine Est GFR (CKD-EPI)AfAm Est GFR (CKD-EPI)NonAf Random Glucose Calcium Magnesium Total Bilirubin AST ALT Alkaline Phosphatase Creatine Kinase Creatine Kinase Index CK-MB (CK-2) Troponin I Total Protein Albumin Urine Color Yellow Urine Appearance Clear Urine pH 7.5 Urine Protein Negative Urine Glucose (UA) Negative Urine Ketones Negative Urine Blood Negative Urine Nitrite Negative Urine Bilirubin Negative Urine Urobilinogen 0.2 Ur Leukocyte Esterase Negative Urine Osmolality 440 Ur Random Sodium 14 L Ur Random Chloride 34 L 04/30/19 04/30/19 04/30/19 06:45 06:45 15:10 WBC RBC Hgb Hct MCV MCH MCHC RDW Plt Count MPV Absolute Neuts (auto) Neutrophils % Lymphocytes % Monocytes % Eosinophils % Basophils % Sodium 130 L 129 L Potassium 3.8 4.1 Chloride 99 100 Carbon Dioxide 25 24 Anion Gap 6 L 5 L BUN 14.0 13.0 Creatinine 0.6 0.8 Est GFR (CKD-EPI)AfAm 105.52 93.75 Est GFR (CKD-EPI)NonAf 91.04 80.89 Random Glucose 94 105 Calcium 8.4 L 8.2 L Magnesium 2.0 Total Bilirubin AST ALT Alkaline Phosphatase Creatine Kinase Creatine Kinase Index CK-MB (CK-2) Troponin I Total Protein Albumin Urine Color Urine Appearance Urine pH Urine Protein Urine Glucose (UA) Urine Ketones Urine Blood Urine Nitrite Urine Bilirubin Urine Urobilinogen Ur Leukocyte Esterase Urine Osmolality Ur Random Sodium Ur Random Chloride HOSPITAL COURSE: Date of Admission:04/29/19 Date of Discharge: 04/30/19 Minutes to complete discharge: 35 Discharge Summary Problems reviewed: Yes Reason For Visit: HYPONATREMIA Current Active Problems Fracture of metacarpal of right hand, closed (Acute) Hyponatremia (Acute) Condition: Stable - Instructions Referrals: Roddy Quach [Primary Care Provider] - - Home Medications Comprehensive Discharge Medication List: Ambulatory Orders Amlodipine Besylate 5 mg PO DAILY 04/28/17 Aspirin Coated [Ecotrin -] 81 mg PO DAILY 04/29/19 Losartan Potassium [Cozaar] 100 mg PO DAILY 04/29/19 Quetiapine Fumarate [Seroquel -] 50 mg PO HS 04/29/19
[2019-04-30] MEDS ORDERED: QUEtiapine FUMARATE 25 MG TABLET PO SCH ×2 (22:00)
[2019-04-30] MEDS ORDERED: QUEtiapine FUMARATE 50 MG TABLET PO SCH (22:00)
== END 2019-04-30 17:57 | disposition home or self-care (01) | DRG 641 ==
LOC: FER 17:06 → FM/S 19:33
PROVIDERS: ADMIT Internal Medicine; ATTEND Nurse Practitioner Acute Care
DX: E87.1 Hypo-osmolality and hyponatremia (principal); S92.344A Nondisplaced fracture of fourth metatarsal bone, right foot, initial encounter for closed fracture; S92.354A Nondisplaced fracture of fifth metatarsal bone, right foot, initial encounter for closed fracture; F41.9 Anxiety disorder, unspecified; I10 Essential (primary) hypertension; D64.9 Anemia, unspecified; K59.09 Other constipation; I95.1 Orthostatic hypotension; W18.30XA Fall on same level, unspecified, initial encounter; Y92.89 Other specified places as the place of occurrence of the external cause; Z96.649 Presence of unspecified artificial hip joint
CPT/HCPCS: 36415; 70450-TC; 70480-TC; 71046-TC-FY; 73030-TC-RT-FY; 73110-TC-RT-FY; 73130-TC-RT-FY; 80048; 80053; 81003; 82436; 82550; 82553; 83735; 83930; 83935; 84300; 84484; 85025; 85027; 87086; 93005; 97116-GP; 97162-GP; 99285-25; J1644; J7030